=== PATIENT | male | born 1950 | race Caucasian/White ===

== ENCOUNTER 2016-11-26 13:46 | Emergency (ER) | payer MEDICARE, OTHER ==
[~2016-11-26] VITALS: Ht 180.3 cm; Wt 83.9 kg
[~2016-11-26 13:46] MED LIST: AMLO5TAB4 PO; ASPI81TA93 PO; D AM PO; INTERFERON; SOFO400T PO; [UNRECOGNIZED DRUG - CODE] PO
[2016-11-26] MEDS ORDERED: IV SET PRIMARY PUMP SET 1 EA INFUS.SET MC ONE (14:25)
[2016-11-26] MEDS ORDERED: IV NS 0.9% 500 ML IV ONE (14:25)
[2016-11-26] MEDS ORDERED: IV NS 0.9% 500 ML BAG IV ONE (14:30)
[2016-11-26 14:32] LABS: BASOPHILS % (AUTO) 0.9 % (0.0-2.0); DIFF TOTAL % 100 %; EOSINOPHILS # (AUTO) 0.1 /CMM (0.0-0.7); EOSINOPHILS % (AUTO) 2.6 % (0.0-6.0); HEMATOCRIT 44 % (39-51); HEMOGLOBIN 14.6 g/dL (13.5-17.5); LYMPHOCYTES # (AUTO) 1.6 /CMM (0.8-4.8); LYMPHOCYTES % (AUTO) 29.3 % (20.0-44.0); MEAN CORPUSCULAR HEMOGLOBIN 30 PG (26.0-33.0); MEAN CORPUSCULAR HGB CONC 34 g/dl (31.0-36.0); MEAN CORPUSCULAR VOLUME 90 fL (80-96); MONOCYTES # (AUTO) 0.4 /CMM (0.1-1.30); MONOCYTES % (AUTO) 8.2 % (2.0-12.0); NEUTROPHILS # (AUTO) 3.2 /CMM (1.8-8.9); PLATELET COUNT (AUTO) 218 /CMM (150-450); RED BLOOD CELL COUNT(AUTO) 4.83 MIL/uL (4.5-6.0); WHITE BLOOD COUNT (AUTO) 5.3 K/uL (4.3-11.0)
[2016-11-26 14:49] LABS: INR 0.97 (0.87-1.13); PROTHROMBIN TIME 10.5 SECS (9.5-12.7)
[2016-11-26 15:14] LABS: ANION GAP 11 (5-14); CALCIUM, SERUM 9.4 mg/dL (8.5-10.1); CARBON DIOXIDE 31 mmol/L (21-32); CHLORIDE 103 mmol/L (98-107); CREATININE 1.1 mg/dL (0.6-1.3); GFR 67 mL/min (>60); GLUCOSE 98 mg/dL (74-106); POTASSIUM 4.8 mmol/L (3.5-5.1); SODIUM SERUM 140 mmol/L (136-145); UREA NITROGEN, BLOOD 20 mg/dL (7-18)
[2016-11-26 15:23] LABS: TROPONIN I < 0.017 ng/mL (0.00-0.056)
[2016-11-26 15:37] LABS: ADD UA MICROSCOPIC NO; KETONES,URINE NEGATIVE (NEGATIVE); LEUKOCYTE ESTERASE ,URINE NEGATIVE (NEGATIVE)
[2016-11-26 16:30] VITALS: BP 139/78
== END 2016-11-26 16:32 | disposition home or self-care (01) ==
LOC: ER 13:48
DX: R55 Syncope and collapse (principal); I10 Essential (primary) hypertension; K76.0 Fatty (change of) liver, not elsewhere classified; B19.20 Unspecified viral hepatitis C without hepatic coma; E78.00 Pure hypercholesterolemia, unspecified; D49.0 Neoplasm of unspecified behavior of digestive system; Z95.0 Presence of cardiac pacemaker; Z79.82 Long term (current) use of aspirin
CPT/HCPCS: 36415; 71010-TC; 80048-TC; 81000-TC; 84484-TC; 85025-TC; 85730-TC; A4606; J7040; Z7610

== ENCOUNTER 2018-05-11 17:16 | Emergency (ER) | payer MEDICARE, OTHER ==
[~2018-05-11] VITALS: Ht 185.4 cm; Wt 81.6 kg
[2018-05-11 17:51] VITALS: BP 114/61
--- NOTE | 2018-05-11 19:32 | NUR ---
REPORT BY ADMITTING THAT THIS PATIENT HAS LEFT THE BUILDING. WILL TAKE OUT OF SYSTEM
== END 2018-05-11 19:33 | disposition left against medical advice (07) ==
LOC: ER 17:16
DX: F10.10 Alcohol abuse, uncomplicated (principal); Y90.9 Presence of alcohol in blood, level not specified; Z53.21 Procedure and treatment not carried out due to patient leaving prior to being seen by health care provider
CPT/HCPCS: A4606; Z7610

== ENCOUNTER 2019-03-18 07:23 | Emergency (ER) | payer MEDICARE, OTHER ==
[~2019-03-18] VITALS: Ht 180.3 cm; Wt 86.2 kg
[2019-03-18 07:27] VITALS: BP 134/59
== END 2019-03-18 07:46 | disposition home or self-care (01) ==
LOC: ER 07:26
DX: H00.11 Chalazion right upper eyelid (principal); I10 Essential (primary) hypertension; E78.00 Pure hypercholesterolemia, unspecified; F10.10 Alcohol abuse, uncomplicated; F12.10 Cannabis abuse, uncomplicated; F19.10 Other psychoactive substance abuse, uncomplicated; Y90.9 Presence of alcohol in blood, level not specified; Z95.0 Presence of cardiac pacemaker; Z85.05 Personal history of malignant neoplasm of liver; Z86.19 Personal history of other infectious and parasitic diseases; Z60.2 Problems related to living alone; Z79.82 Long term (current) use of aspirin